=== PATIENT | female | born 1960 | race Caucasian/White ===

== ENCOUNTER 2020-04-20 09:55 | Day surgery (SDC) | payer BC, SELFPAY ==
[2020-04-17 08:58] LABS: BASOPHILS % (AUTO) 0.7 % (0.0-2.0); EOSINOPHILS # (AUTO) 0.2 K/uL (0.0-0.4); EOSINOPHILS % (AUTO) 2.9 % (0.0-4.0); HEMATOCRIT 43.1 % (36-48); LYMPHOCYTES # (AUTO) 1.9 K/uL (1.0-5.5); LYMPHOCYTES % (AUTO) 34.3 % (20.5-51.5); MEAN CORPUSCULAR HEMOGLOBIN 29 pg (27-31); MEAN CORPUSCULAR HGB CONC 33 % (32-36); MEAN CORPUSCULAR VOLUME 89 fL (79.0-98.0); MONOCYTES # (AUTO) 0.5 K/uL (0.0-1.0); MONOCYTES % (AUTO) 9.3 % (1.7-9.3); NEUTROPHILS # (AUTO) 2.9 K/uL (1.8-7.7); NEUTROPHILS % (AUTO) 52.8 % (40.0-70.0); PLATELET COUNT (AUTO) 257 K/uL (130-430); RED BLOOD CELL COUNT(AUTO) 4.83 MIL/uL (4.2-6.2); RED CELL DISTRIBUTION WIDTH 13.4 % (9.0-15.0); WHITE BLOOD COUNT (AUTO) 5.5 K/uL (4.8-10.8)
[2020-04-17 09:01] LABS: BILIRUBIN,URINE NEGATIVE (NEGATIVE); BLOOD, URINE NEGATIVE (NEGATIVE); CLARITY/URINE SL CLOUDY (CLEAR); COLOR,URINE YELLOW (YELLOW); GLUCOSE,URINE NEGATIVE (NEGATIVE); KETONES,URINE NEGATIVE (NEGATIVE); LEUKOCYTE ESTERASE ,URINE 3+ (NEGATIVE); NITRITE, URINE NEGATIVE (NEGATIVE); PROTEIN URINE NEGATIVE (NEGATIVE); UROBILINOGEN,URINE 0.2 (0.2-1.0)
[2020-04-17 09:06] LABS: BACTERIA,URINE FEW /HPF (None Seen); RBC,URINE 0-3 /HPF (0-3); WBC,URINE 20-50 /HPF (0-3)
[2020-04-17 09:09] LABS: CREATININE 0.82 mg/dL (0.55-1.30)
[2020-04-17 09:14] LABS: PROTHROMBIN TIME 9.7 SECS (9.5-12.5)
[~2020-04-20] VITALS: Ht 167.6 cm; Wt 72.6 kg
[2020-04-20] MEDS ORDERED: ONDANSETRON HCL 4 MG/2 ML VIAL IVP PRN (12:30)
[2020-04-20] MEDS ORDERED: fentaNYL CITRATE/PF 100 MCG/2 ML AMP IVP PRN ×2 (12:30)
[2020-04-20] MEDS ORDERED: PROPOFOL 200MG/ 20ML VIAL (DIPRIVAN) IV ONE (12:35)
[2020-04-20] MEDS ORDERED: BUPIVACAINE /PF 0.5% 30 ML VIAL ONE (12:35)
[2020-04-20] MEDS ORDERED: SEVOFLURANE 15 MIN GAS INH ONE (12:35)
[2020-04-20] MEDS ORDERED: fentaNYL CITRATE/PF 100 MCG/2 ML AMP ONE (12:35)
[2020-04-20] MEDS ORDERED: NS IRRIG SOLN 1000 ML IR ONE (12:35)
[2020-04-20] MEDS ORDERED: MIDAZOLAM HCL 5 MG/ML VIAL (VERSED) IV ONE (12:35)
[2020-04-20 13:27] VITALS: BP_SYST 114
[2020-04-20] MEDS ORDERED: HYDROcodone/ACETAMIN 10-325 MG TAB PO ONE (13:30)
[2020-04-20] MEDS ORDERED: HYDROcodone/ACETAMIN 10-325 MG TAB ONE (13:37)
== END 2020-04-20 14:35 | disposition home or self-care (01) ==
LOC: SDS 09:55 → SMU 09:55 → SDS 14:35
PROVIDERS: ATTEND Orthopaedic Surgery
DX: R22.32 Localized swelling, mass and lump, left upper limb (principal); D37.05 Neoplasm of uncertain behavior of pharynx; G40.909 Epilepsy, unspecified, not intractable, without status epilepticus; Z98.890 Other specified postprocedural states; Z79.899 Other long term (current) drug therapy; Z11.59 Encounter for screening for other viral diseases; Z79.01 Long term (current) use of anticoagulants
CPT/HCPCS: 26160; 36415; 71046; 80048; 81000; 85025; 85610; 85730; 88305; 93005; J2250; J2704; J3010; J3490; U0003